=== PATIENT | male | born 1985 | race Caucasian/White ===

== ENCOUNTER 2020-09-06 15:08 | Emergency (ER) | payer BC, SELFPAY ==
[2020-09-06 15:27] VITALS: BP 130/77; PULSE 100; RESP 20; TEMP 36.6; O2SAT 100
--- NOTE | 2020-09-06 15:29 | ED.MALEGU ---
HPI - Male Genitourinary General Chief complaint: Urogenital-Male Stated complaint: Urogenital-Male Time Seen by Provider: 09/06/20 15:29 Source: patient and RN notes reviewed History of Present Illness HPI Narrative: Patient is a 34-year-old male who presents the urgent care with complaints of 1 week history of white milky penile discharge as well as some intermittent dysuria. Patient states that he was positive for trichomonas 2 months ago and believes the symptoms are consistent with trichomonas. Patient states that there is a awaiting of friends that continue to have sex with one another and he believes that someone is not being treated appropriately and is spreading throughout the [place] of friends . Patient denies of any blood in the urine, low back pain, nausea, vomiting, abdominal pain. No other acute complaints. No acute distress noted. Patient aware of the plan of care. Some parts of this dictation were generated by voice recognition software and may contain typographical and/or grammatical inaccuracies. Related Data Allergies Allergy/AdvReac Type Severity Reaction Status Date / Time No Known Allergies Allergy Verified 09/06/20 15:41 Review of Systems Review of Systems: Narrative: CONSTITUTIONAL: Denies fever, chills, or sweats. EYES: Denies visual changes, redness, or discharge. ENT: Denies rhinorrhea, congestion, sore throat, or otalgia. CARDIOVASCULAR: Denies chest pain, palpitations, or edema. RESPIRATORY: Denies cough or dyspnea. GASTROINTESTINAL: Denies abdominal pain, nausea, vomiting, or diarrhea. GENITOURINARY: Reports of dysuria, milky penile discharge SKIN: Denies rash or itching. MUSCULOSKELETAL: Denies back pain, joint pain, or myalgia. NEUROLOGIC: Denies headache, numbness, or weakness. All other systems reviewed are negative, except as documented in HPI. PMFSH Comments At the time of my signature, I reviewed and agree with the nursing past medical, surgical, social, and family history. There is no relevant family history pertinent to the patient complaint. Exam Narrative: Exam Narrative: GENERAL: This is a well-nourished, well-developed patient, in no apparent distress. HEAD: normocephalic, atraumatic. EYES: PERRL. Sclera clear/white. Vision is grossly intact. EARS: External ears normal NOSE: External nose normal with no obvious nasal discharge, nares without redness, no rhinorrhea. THROAT: Mucous membranes moist NECK: Neck supple SKIN: warm, intact with no suspicious lesions or rash, good texture and turgor. NEURO: awake, alert, and oriented to person, place and time. There were no obvious focal neurologic abnormalities. EXTREMITIES: No clubbing, cyanosis, or edema. Course Vital Signs Vital signs: Vital Signs Temperature 97.8 F 09/06/20 15:27 Pulse Rate 100 09/06/20 15:27 Respiratory Rate 20 09/06/20 15:27 Blood Pressure 130/77 09/06/20 15:27 Pulse Oximetry 100 09/06/20 15:27 Temperature 97.8 F 09/06/20 15:27 Pulse Rate 100 09/06/20 15:27 Respiratory Rate 20 09/06/20 15:27 Blood Pressure 130/77 09/06/20 15:27 Pulse Oximetry 100 09/06/20 15:27 Reviewed MDM - Male Genitourinary MDM Narrative Medical decision making narrative: Patient is aware that he will be treated today for trichomonas, gonorrhea and chlamydia. Your results will take approximately 1 week and we will call with negative or positive results. Advised the patient to make sure he completes the antibiotic regimen in its entirety or it will not cover correctly. Also urged the patient to remain abstinent for 14 days after treatment. Be sure to eat and drink with the oral antibiotics. All your partners that must be tested and treated as well. The health department does have an STD testing site for those partners. If you develop any increase in symptoms associated with fever, chills, nausea, vomiting, excessive penile discharge?follow-up in the emergency room if necessary. Follow-up with your PC
[2020-09-06] MEDS: cefTRIAXone 250 MG VIAL 500 MG IM (15:59)
== END 2020-09-06 16:20 | disposition home or self-care (01) ==
PROVIDERS: Emergency Provider Nurse Practitioner Family
DX: Z20.2 Contact with and (suspected) exposure to infections with a predominantly sexual mode of transmission (principal)
CPT/HCPCS: 87491; 87591; 87661; 96372; 99213; G0463; J0696; J7030

== ENCOUNTER 2024-03-14 17:54 | Emergency (ER) | payer MEDICAID, SELFPAY ==
[2024-03-14 18:02] VITALS: BP 130/94; PULSE 103; RESP 20; TEMP 36.9; O2SAT 96
--- NOTE | 2024-03-14 18:09 | ED.DENTAL ---
HPI - Dental/Oral General Chief complaint: Dental/Oral Stated complaint: Toothache Source: patient Mode of arrival: ambulatory History of Present Illness HPI Narrative: 38 y/o male presented for c/o left upper dental pain, worsening over the past few days. States he lost a filling to the site about one month ago. Says the one dose of ibuprofen he took did not help. Denies facial swelling, n/v/d/f/c. Scheduled with dentist in [facility] 04/25. Complaint: tooth pain Related Data Allergies Allergy/AdvReac Type Severity Reaction Status Date / Time No Known Allergies Allergy Verified 03/14/24 18:12 Review of Systems Review of Systems: CONSTITUTIONAL: Denies body aches, fever, chills ENT: Denies rhinorrhea, congestion, sore throat, or otalgia. Reports dental pain CARDIOVASCULAR: Denies chest pain, palpitations RESPIRATORY: Denies cough or dyspnea. SKIN: Denies rash, itching, or wounds. MUSCULOSKELETAL: Denies myalgia. NEUROLOGIC: Denies headache, numbness, tingling, or weakness. PMFSH Comments At time of signature, I have reviewed and agree with nursing past medical, surgical, social and family history unless otherwise noted. Please see nursing chart for further information. There is no relevant family history pertinent to the presenting complaint Exam Narrative: GENERAL: Appears in pain; no acute distress. HEAD: Normocephalic, atraumatic. EYES: EOMI. No redness or drainage. Conjunctivae normal. ENT: Dental pain location of #14, broken tooth, mild tenderness with palpation of gumline, no significant swelling. Mucous membranes pink and moist. TMs normal bilaterally. Throat normal. Uvula midline. No soft palate swelling, no dysphagia, odynophagia, dysphonia, or dyspnea. No apparent facial swelling. NECK: Normal AROM. No lymphadenopathy. no induration below mandible, no neck pain. CHEST: No respiratory distress. Clear to auscultation. HEART: Regular rate and rhythm. No murmur appreciated. SKIN: Warm, dry, Normal skin turgor. NEURO:Alert and oriented x3. Gait steady. Course Course Emergency Course: Patient is aware of diagnosis, understands and agrees to treatment plan. Anticipatory guidance given. Patient agrees to follow-up as directed and is aware of reasons to seek care at the emergency department. Portions of this record may have been created with voice recognition software Level of Care: Express Care Visit Vital Signs Vital signs: Vital Signs Temperature 98.4 F 03/14/24 18:02 Pulse Rate 103 H 03/14/24 18:02 Respiratory Rate 20 03/14/24 18:02 Blood Pressure 130/94 H 03/14/24 18:02 Pulse Oximetry 96 03/14/24 18:02 Oxygen Delivery Room Air 03/14/24 18:02 Temperature 98.4 F 03/14/24 18:02 Pulse Rate 103 H 03/14/24 18:02 Respiratory Rate 20 03/14/24 18:02 Blood Pressure 130/94 H 03/14/24 18:02 Pulse Oximetry 96 03/14/24 18:02 Oxygen Delivery Room Air 03/14/24 18:02 MDM - Dental/Oral MDM Narrative Medical decision making narrative: Patients pain and complaint coupled with physical findings are consistent with dentalgia. There are no focal signs of space occupying lesions that are compromising to the airway;. Patient is non-toxic appearing. The floor of the mouth is soft with no signs of Bebo's Angina; Patient is without trismus or drooling and able to swallow secretions. Patient is felt appropriate for discharge home with dental follow up. Discharge Plan Discharge Clinical Impression: Toothache Patient Disposition: Home, Self-Care Condition: Stable Instructions: Antibiotic Form, Dental Abscess (ED) Additional Instructions: Take antibiotic as directed May apply heat or ice to the face Gentle brushing and flossing. Rinse mouth with warm salt water at least 2 times a day. Alternate Tylenol and ibuprofen as needed for pain Follow-up with the dentist as soon as possible--see the list provided Go to the ER for any worsenin
== END 2024-03-14 18:17 | disposition home or self-care (01) ==
PROVIDERS: Emergency Provider Nurse Practitioner Family
DX: K08.89 Other specified disorders of teeth and supporting structures (principal)
CPT/HCPCS: 99213; G0463

== ENCOUNTER 2025-02-08 13:42 | Emergency (ER) | payer BC, SELFPAY ==
--- OUTSIDE RECORDS SUMMARY | 2025-02-08 13:43 | XMS_ITS | Referral Summary ---
Author Organization [facility] Address [address] [place] [address] Care Team Providers Care County Supervisor Name Role Phone No, Physician Primary Care Provider [phone] Allergies No known active allergies Social History Tobacco Use Types Packs/Day Years Used Date Smoking Tobacco: Never Assessed Personal Safety Answer Date Recorded Have you ever been in or are you currently in a harmful physical or emotional relationship or is someone making you feel afraid or unsafe? Denies 07/20/2024 Sex and Gender Information Value Date Recorded Sex Assigned at Not on file Legal Sex Male 1:58 PM TENTERER Gender Identity Not on file Sexual Orientation Not on file Last Filed Vital Signs Vital Sign Reading Time Taken Comments Blood Pressure 129/92 07/20/2024 5:09 PM TENTERER Pulse 91 07/20/2024 5:15 PM TENTERER Temperature 36.8 C (98.3 F) 07/20/2024 3:30 PM TENTERER Respiratory Rate 14 07/20/2024 3:31 PM TENTERER Oxygen Saturation 97% 07/20/2024 5:15 PM TENTERER Inhaled Oxygen Concentration - - Weight 113.4 kg (250 lb) 07/20/2024 3:31 PM TENTERER Height 193 cm (6' 4) 07/20/2024 3:31 PM TENTERER Body Mass Index 30.43 07/20/2024 3:31 PM TENTERER Plan of Treatment Not on file Insurance [facility] [place] [facility] Care Teams County Supervisor Relationship Specialty Start Date End Date No, Physician PCP - General 07/20/24
--- OUTSIDE RECORDS SUMMARY | 2025-02-08 13:43 | XMS_ITS | Clinical Summary ---
Author Organization [facility] Address [address] [place] [address] Care Team Providers Care Wax Pot Tender Name Role Phone No, Physician Primary Care Provider [phone] Allergies No known active allergies Social History [...] on file Legal Sex Male 1:58 PM MANUFACTURING ANALYST Gender Identity Not on file Sexual Orientation Not on file Last Filed Vital Signs Vital Sign Reading Time Taken Comments Blood Pressure 129/92 07/20/2024 5:09 PM MANUFACTURING ANALYST Pulse 91 07/20/2024 5:15 PM MANUFACTURING ANALYST Temperature 36.8 C (98.3 F) 07/20/2024 3:30 PM MANUFACTURING ANALYST Respiratory Rate 14 07/20/2024 3:31 PM MANUFACTURING ANALYST Oxygen Saturation 97% 07/20/2024 5:15 PM MANUFACTURING ANALYST Inhaled Oxygen Concentration - - Weight 113.4 kg (250 lb) 07/20/2024 3:31 PM MANUFACTURING ANALYST Height 193 cm (6' 4) 07/20/2024 3:31 PM MANUFACTURING ANALYST Body Mass Index 30.43 07/20/2024 3:31 PM MANUFACTURING ANALYST Plan of Treatment Health Maintenance Due Date Last Done Comments Depression Screening 1987 Hepatitis C Screening 1987 DTaP/Tdap/Td Vaccine (1 - Tdap) 11/22/1998 Varicella Vaccines (1 of 2 - 13+ 2-dose series) 11/22/2000 Hepatitis B Screening 11/22/2005 Regular Well Visit/Exam 18-64 11/22/2005 Influenza Vaccine (Season Ended) 2025 HPV Vaccines Aged Out No longer eligi ble based on patient's age to complete this topic Pneumococcal vaccine <65 Aged Out No longer eligible based on patient's age to complete this topic Insurance Care Teams Wax Pot Tender Relationship Specialty Start Date End Date No, Physician PCP - General 07/20/24
--- OUTSIDE RECORDS SUMMARY | 2025-02-08 13:43 | XMS_ITS | Clinical Summary ---
Author Organization [facility] Address [address] [facility], [address] [address] Phone Care Team Providers Care Automobile Body Repairer Name Role Phone Romero Barreto MD Unavailable Provider, None Primary Care Provider Unavailabl e Allergies No known active allergies Medications No known medications Active Problems No known active problems Family History Medical History Relation Name Comments No Known Problems Father No Known Problems Half-Sister 1 No Known Problems Half-Sister 2 Diabetes Mother Relation Name Status Comments Father Half-Sister 1 Alive Half-Sister 2 Alive Mother Alive Social History Tobacco Use Types Packs/Day Years Used Date Smoking Tobacco: Every Day Cigarettes 0.5 19.5 Started: 2005 Passive Smoke Exposure: Never Smokeless Tobacco: Never Tobacco Cessation:Ready to Q uit: No; Counseling Given: No Alcohol Use Standard Drinks/Week Comments Never 0 (1 standard drink = 0.6 oz pur e alcohol) Sexually Active Control Partners Comments Yes None Female Sex and Gender Information Value Date Recorded Sex Assigned at Not on file Legal Sex Male 7:56 PM CDT Gender Identity Not on file Sexual Orientation Not on file Last Filed Vital Signs Vital Sign Reading Time Taken Comments Blood Pressure 134/74 09/19/2024 9:13 AM HOSE FINISHER Pulse 104 09/19/2024 9:13 AM HOSE FINISHER Temperature 36.1 C (97 F) 09/19/2024 9:13 AM HOSE FINISHER Respiratory Rate 16 08/26/2024 11:45 AM HOSE FINISHER Oxygen Saturation 97% 09/19/2024 9:13 AM HOSE FINISHER Inhaled Oxygen Concentration - - Weight 106.6 kg (235 lb) 09/19/2024 9:13 AM HOSE FINISHER Height 193 cm (6' 4) 09/19/2024 9:13 AM HOSE FINISHER Body Mass Index 28.61 09/19/2024 9:13 AM HOSE FINISHER Plan of Treatment Health Maintenance Due Date Last Done Comments Hepatitis C Virus (HCV) Screening 1987 TdaP Immunization 1987 Human Papillomavirus (HPV) Immunization (1 - Male 3-dose series) 11/22/2002 Pneumococcal Immunization Combined (1 of 2 - PCV) 11/22/2006 SARS-COV-2 Immunization (1 - season) 2024 Influenza Immunization (Seas on Ended) 2025 Respiratory Syncytial Virus (RSV) Immunization (Adult) (1 - 1-dose 75+ series) 11/22/2062 Hepatitis B Immunization Completed 998, 04/30/1997, 02/27/1997 Meningococcal Immunization (ACWY) Aged Out No longer eligible b ased on patient's age to complete this topic Rotavirus Immunization Aged Out No lo nger eligible based on patient's age to complete this topic Medical Devices Implanted Type Area Slice Plug Cutter Operator Helper Device Identifier Shelf Expiration Date Model / Serial / Lot Mesh Srg Ventralight St Sepra Echo Ps 6in Mfl Ltwt Abs Loprfl Strl Seprafilm Polyp Hydrogel Iqugmiut - [id number] Implanted:Qty: 1 on 08/26/2024 by Romero Barreto MD at [facility] IMPLANT N/A: Abdomen [employer] 09/02/2025 [id number] / [id number] / [id number] Staple Tacker Optifix At - [id number] Implanted:Qty: 1 on 08/26/2024 by Romero Barreto MD at [facility] IMPLANT N/A: Abdomen [employer] 12/31/2024 [id number] / [id number] / [id number] Staple Tacker Optifix At - [id number] Implanted:Qty: 1 on 08/26/2024 by Romero Barreto MD at [facility] IMPLANT N/A: Abdomen [employer] 12/01/2024 [id number] / [id number] / [id number] Insurance [place] [id number] Care Teams Automobile Body Repairer Relationship Specialty Start Date End Date Provider, None [place] PCP - General 08/26/24 Romero Barreto MD [address] [address] Consulting Physician General Surgery 08/18/24
[2025-02-08 13:53] VITALS: BP 125/90; PULSE 77; RESP 18; TEMP 36.8; O2SAT 98
--- NOTE | 2025-02-08 13:54 | ED_ITS ---
HPI - Ear Problem General Chief complaint: Ear Stated complaint: Ear Pain Time Seen by Provider: 02/08/25 13:44 Patient presents to Express Care with complaints of nasal congestion, nasal drainage, productive cough, headaches, and left ear pain that began about 2 weeks ago. Patient noted this started about 3 days after being at [facility] and did get water in his ear. Patient does report a history of ear infections, sinus infections, and seasonal allergies. Some psuy-[id number]-[id number] cough cold medications used along with ibuprofen without relief of symptoms. Denies fever, chills, body aches, dizziness, or shortness of breath. Related Data Allergies Allergy/AdvReac Type Severity Reaction Status Date / Time No Known Allergies Allergy Verified 03/14/24 18:12 Review of Systems Constitutional: Constitutional: Reports as per HPI, Denies chills, Denies fatigue, Denies fever(s) and Denies weakness Eyes: Eyes: Reports no additional eye complaints ENT: Reports as per HPI, Denies dysphagia, Denies vertigo, Denies dizziness, Denies epistaxis, Reports nasal congestion and Reports sore throat Comments: Left ear pain, drainage from left ear, nasal drainage, cough Cardiovascular: Cardiovascular: Reports no additional cardiovascular complaints Respiratory: Respiratory: Reports as per HPI, Reports chest congestion, Reports cough, Denies dyspnea and Denies wheezing Gastrointestinal: Gastrointestinal: Reports no additional gastrointestinal complaints Genitourinary: Genitourinary: Reports no additional male genitourinary complaints Musculoskeletal: Musculoskeletal: Reports no additional musculoskeletal complaints Neurologic: Reports as per HPI and Reports headache(s) Psychiatric: Psychiatric: Reports no additional psychiatric complaints Endocrine: Endocrine: Reports no additional endocrine complaints Hematologic/Lymphatic: Hematologic/Lymphatic: Reports no additional hematologic/lymphatic complaints Allergic/Immunologic: Allergic/Immunologic: Reports as per HPI, Denies lip swelling, Denies throat swelling, Denies tongue swelling and Denies wheezing Comments: seasonal allergies Exam Const: General: healthy appearing and no acute distress Nutritional Appearance: well nourished Orientation/consciousness: patient oriented x3 Limitations: no limitations HENMT: Head: normal to inspection Ears: external ears normal, TM's abnormal bilaterally and TM abnormal (left ) bulging, dull, wth effusion, erythematous and with fluid behind the TM Face/Nose/Sinus: Normal external nose present and Normal nares present Face and sinus: normal facial exam and sinus tenderness Mouth: Yes Normal oral and palatal mucosa present and Yes moist mucous membranes Throat: posterior oropharynx normal Other: left ear canal mild swelling, moderate erythema, and drainage noted. Neck: Neck: no lymphadenopathy Resp: Effort & Inspection: normal respiratory effort Auscultation: clear to auscultation bilaterally Cardio: Rate: regular rate Rhythm: regular rhythm Skin: General skin exam: normal color Rashes: no rashes Wounds: no wounds Neuro: General: patient oriented x3 Speech: normal speech Gait exam (Neuro): Normal gait present Psych: Mental Status: mental status grossly normal Affect: normal affect Attitude: cooperative Course Course Level of Care: Express Care Visit Medical Decision Making MDM Narrative Medical decision making narrative: Sinusitis and ear infection headed. Patient requesting ear drops as well as oral antibiotics. Discharge instructions reviewed with patient, as well as provided in writing per nursing staff. The instructions also include specific and strict return/GO TO THE ER as well as f/u information. All questions have been answered, and the patient deny any further questions with discharge and discharge plan. Differential Diagnosis Differential Diagnosis: Because media, otitis externa, sinusitis, pharyngitis Medical Records Medical records reviewed: Yes I reviewed the external patient's medical records. Discharge Plan Discharge Clinical Impression: Otitis externa, Sinusitis Patient Disposition: Home Condition: Stable Instructions: Antibiotic Form, Sinusitis (ED), Allergies (ED) Additional Instructions: -Ear drops as directed for 7-10 days until the pain and swelling are gone. -When administer drug into the affected ear; make sure to ly down with the affected ear facing upward, message the ear canal to help the drops reach the medial end of the canal, then remain in that position for at least 5 mintues. -Avoid using cotton tipped applicator for ears cleaning -Avoid exposing swimming or exposing the affected ear to water during the treatment period Take or alternate tylenol or ibuprofen every 4 - 6 hours if needed for pain. Follow up with primary care provider if condition is not improving in 7 days or sooner if there is new concern. Patient Language: Indonesian Prescriptions: New pseudoephedrine HCl [Sudafed] 30 mg tablet 30 mg PO Q4-6H PRN (Reason: nasal congestion) Qty: 24 0RF Rx Instructions: DNExceed 4 doses/24h amoxicillin-pot clavulanate 875-125 mg tablet 1 tablet PO Q12H Qty: 20 0RF ciprofloxacin-dexamethasone 0.3-0.1 % drops,suspension 4 drp EACH EAR Q12H 7 Days Qty: 7.5 0RF No Action ibuprofen 800 mg tablet 800 mg PO TID PRN (Reason: pain) Qty: 15 0RF lidocaine HCl [Lidocaine Viscous] 2 % solution 1 applic mucous membrane TID PRN (Reason: pain) Qty: 100 0RF Rx Instructions: apply with cotton swab to site of pain amoxicillin-pot clavulanate 875-125 mg tablet 1 tablet PO Q12H 7 Days Qty: 14 0RF Follow-up/Referrals: PHYSICIAN,CONVEYOR BELT OPERATOR [Primary Care Provider] - Time of Disposition: 14:07
== END 2025-02-08 14:20 | disposition home or self-care (01) ==
PROVIDERS: Emergency Provider Nurse Practitioner Family
DX: H66.92 Otitis media, unspecified, left ear (principal); J32.9 Chronic sinusitis, unspecified
CPT/HCPCS: 99213; G0463